=== PATIENT | male | born 1960 | race Caucasian/White ===

== ENCOUNTER 2022-04-27 07:19 | Outpatient (CLI) | payer OTHER, SELFPAY ==
--- NOTE | ~2022-04-27 | US_ITS ---
EXAMINATION: US carotid duplex BI DATE: 04/27/2022 08:05 INDICATION: Dizziness and giddiness. TECHNIQUE: Grayscale, color Doppler, and pulsed Doppler images of the cervical carotid arteries were obtained. The degree of vessel stenosis is placed in one of the following categories: normal, <50%, 5 0-69%, >=70% but less than near-occlusion, near-occlusion, or total occlusion. Note that percent sten osis relative to normal distal artery lumen diameter is indirectly measured from velocity measurement s as described by Rafael, et al. Radiology 2003; 229:340-346. COMPARISON: None. FINDINGS: RIGHT: The right common carotid artery (CCA) peak systolic velocity (PSV) is 79 cm/s. The right internal car otid artery (ICA) PSV is 81 cm/s. The right ICA end-diastolic velocity (EDV) is 22 cm/s. The right IC A/CCA PSV ratio is 1.0. Grayscale and color Doppler images yield an estimate of <50% diameter reducti on from plaque in the ICA. There is antegrade flow in the right vertebral artery. LEFT: The left CCA PSV is 77 cm/s. The left ICA PSV is 88 cm/s. The left ICA EDV is 27 cm/s. The left ICA/C CA PSV ratio is 1.1. Grayscale and color Doppler images yield an estimate of <50% diameter reduction from plaque in the ICA. There is antegrade flow in the left vertebral artery. IMPRESSION: 1. <50% stenosis in the right internal carotid artery. 2. <50% stenosis in the left internal carotid artery. Reviewed, dictated and finalized at location A. [facility] [employer]
== END 2022-04-27 07:20 | disposition home or self-care (01) ==
PROVIDERS: Visit Provider Physician Assistant
DX: R42 Dizziness and giddiness (principal); I65.23 Occlusion and stenosis of bilateral carotid arteries
CPT/HCPCS: 93880

== ENCOUNTER 2022-05-03 08:54 | Outpatient (CLI) | payer OTHER, SELFPAY ==
--- NOTE | ~2022-05-03 | NM_ITS ---
EXAMINATION: NM ana stress w perfusion DATE: 05/03/2022 10:59 INDICATION: Chest pain, unspecified. TECHNIQUE: Rest images were obtained following intravenous administration of 11 mCi Tc99m tetrofosmin (Myoview). The patient was infused intravenously with Lexiscan (regadenoson). Then, 34 mCi Tc99m tet rofosmin (Myoview) was administered intravenously, and stress images were obtained. Data was reconstr ucted into short axis and horizontal and vertical long axis SPECT images. Gated SPECT images were als o obtained. COMPARISON: CT abdomen and pelvis 01/28/2014 FINDINGS: There is no definite reversible or fixed perfusion abnormality to suggest ischemia or infar ction. There is no segmental wall motion abnormality. Left ventricular ejection fraction measures 6 6%. IMPRESSION: 1. No definite ischemia or infarct. 2. Normal left ventricular ejection fraction measuring 66%. Reviewed, dictated and finalized at location A. [facility]
--- NOTE | 2022-05-03 09:43 | EST_ITS ---
Patient Info Name: Pavan Hamlin Age: 61 years : 1960 Gender: Male Ht: 69 in Wt: 175 lbs BSA: 1.98 m2 HR: 85 bpm BP: 126 / 98 mmHg Exam Date: 05/03/2022 10:03 AM Exam Location: [facility] Stress Patient Status: Outpatient Admit Date: 05/03/2022 Staff Ordering Physician: Lisa Baig PA-C Attending Provider: Lisa Baig PA-C Exercise Technologist: Dorys Lezama CT Exercise Physician: Gary Hinton DO Exam Type: CA stress ana w NM Study Info Indications R07.9 - Chest pain, unspecified A regadenoson stress test was performed. Summary 1. 1. Negative lexiscan stress test for ischemic ST changes by ECG criteria. 2. 2. Stable hemodynamics throughout the test. 3. 3. Nuclear scan to follow and will be reported separately. Please correlate with it. 4. 4. Patient informed of the above results. Protocol: Lexiscan Stress ECG Details Stage: REST Duration (min): 3 min : 33 sec HR (bpm): 71 SBP (mmHg): 138 DBP (mmHg): 102 Stage: REST Duration (min): 8 min : 33 sec HR (bpm): 78 SBP (mmHg): 138 DBP (mmHg): 102 Stage: STAGE 1 Duration (min): 1 min : 0 sec HR (bpm): 87 SBP (mmHg): 126 DBP (mmHg): 98 Stage: RECOVERY Duration (min): 1 min : 0 sec HR (bpm): 95 SBP (mmHg): 126 DBP (mmHg): 98 Stage: RECOVERY Duration (min): 2 min : 0 sec HR (bpm): 94 SBP (mmHg): 126 DBP (mmHg): 98 Stage: RECOVERY Duration (min): 3 min : 0 sec HR (bpm): 90 SBP (mmHg): 128 DBP (mmHg): 88 Stage: RECOVERY Duration (min): 3 min : 4 sec HR (bpm): 90 SBP (mmHg): 128 DBP (mmHg): 88 Rest HR: 78 bpm Peak HR: 102 bpm Rest Sys BP: 138 mmHg Peak Sys BP: 128 mmHg Max Pred HR: 157 bpm % Max Pred HR: 65 % Target HR: 133 bpm Max RPP: 13,056 bpm*mmHg Termination Reason: Completed protocol Cardiac Symptoms: Shortness of breath, Stomach discomfort Total Time: 1 min : 0 sec Rest Ching BP: 102 mmHg Peak Ching BP: 88 mmHg Total Dose: 0.4 mg Resting ECG Sinus rhythm, ventricular trigeminy. Stress ECG No ST changes. Arrhythmias None. Report Signatures
== END 2022-05-03 08:55 | disposition home or self-care (01) ==
PROVIDERS: Visit Provider Physician Assistant
DX: R07.9 Chest pain, unspecified (principal)
CPT/HCPCS: 78452; 93017; A9502; J2785

== ENCOUNTER 2023-07-09 08:11 | Outpatient (CLI) | payer OTHER, SELFPAY ==
[2023-07-17 19:04] VITALS: BMI 25.4
--- NOTE | 2023-07-17 19:04 | WPDSLEEPSTUD ---
Sleep Study Date of Study: 07/09/23 Ordering Provider: SHAHRZAD Jiang Interpreting Physician: Tracy Abel DO Sleep Study Type: Split Polysomnogram Height: 1.75 m Weight: 78.018 kg Body Mass Index: 25.4 Neck Circumference (inches): 16 [place]: 16 Reason for Sleep Study Daytime hypersomnia Sleep History The patient is a 62-year-old with hypertension, hyperlipidemia, diabetes, urinary issues, GERD, COPD, mitral valve prolapse and previously diagnosed sleep apnea on CPAP that had a sleep study ordered by the pulmonary group after difficulty tolerating a MAD device. the patient denies awakening from sleep short of breath. He denies awakening at night with heartburn, belching or cough. He denies snoring. He rarely has trouble sleeping when he has a cold. He denies waking up gasping for air throughout the night. He denies having breathing problems at night observed by himself or others. He rarely sweats excessively at night. He denies having heart palpitations or irregular heartbeats during the night. He frequently falls asleep during the day but never while driving. He denies cataplexy and hypnagogic/ hypnopompic hallucinations. He denies having trouble at school or work due to sleepiness. He rarely feels unable to move while waking up or falling asleep. He denies feeling afraid of going to sleep. He denies having nightmares. He rarely remembers his dreams. He denies having thoughts racing through his mind. He denies feeling sad, depressed and anxious. He rarely has muscular tension. He denies noticing parts of his body jerk. He rarely kicks during the night. He rarely has crawling and aching feelings in his legs and rarely has leg pain during the night. He denies grinding his teeth during sleep and denies awakening with morning jaw pain. He is frequently bothered by pain during the day and frequently awakened by pain during the night. He occasionally wakes up feeling stiff in the morning. He rarely wakes up with sore or achy muscles. He rarely wakes up with pain in the neck, spine and other joints. He goes to bed at 9:30 p.m. on both weekdays and weekends. It takes him 10 minutes to fall asleep. He wakes up 1-2 times throughout the night to urinate and many times he is unable to fall back asleep. He wakes up between 3-4 a.m. on both weekdays and weekends. He typically gets 4-5 hours of sleep per night. He does not stay in bed after waking up in the morning. He currently lives with his . He denies consuming any caffeinated beverages within 2 hours of bedtime. He denies engaging in physical exercise before bedtime. He denies reading before falling asleep. He will watch television before falling asleep. He will take naps in the afternoon or the evening and they are refreshing. He consumes 4 cups of caffeinated beverage per day. He smokes 1 pack of cigarettes per day. He denies alcohol and recreational drug use. [facility] Past Medical History Medical History Body mass index (bmi) 27.0-27.9, adult (01/08/18) Chest pain Diabetes Emphysema lung Encounter for surgical aftercare following surgery on the skin and subcutaneous tissue Epidermal inclusion cyst H/O drainage of abscess Hepatitis B High cholesterol Mass of right thigh Mitral valve prolapse Obstructive sleep apnea syndrome Surgical History Surgical History S/P bilateral inguinal hernia repair S/P shoulder surgery Family History Family History Father Diabetes mellitus Family history of malignant melanoma, Onset Age: 40 Family history of malignant neoplasm Mother Family history of hypercholesterolemia Diabetes mellitus Family history of malignant neoplasm of breast Family history of malignant neoplasm Family history of diabetes mellitus in first degree relative
== END 2023-07-10 04:36 | disposition home or self-care (01) ==
LOC: ANHCSM 08:12
PROVIDERS: Visit Provider Physician Assistant
DX: G47.33 Obstructive sleep apnea (adult) (pediatric) (principal); G47.61 Periodic limb movement disorder
CPT/HCPCS: 95811

== ENCOUNTER 2024-06-04 12:52 | Outpatient (CLI) | payer MEDICARE, OTHER, SELFPAY ==
--- NOTE | ~2024-06-04 | CT_ITS ---
CT Scan of the Chest without Contrast: Clinical Indication: Lung cancer screening, nicotine dependence Technique: Contiguous sections were acquired throughout the chest without intravenous contrast. Dose reduction technique was used on this scan by utilizing automated exposure control and iterative recon struction technique. The dose-length product (DLP) was 106.47 mGy-cm. Findings: There is no evidence of any significant mediastinal, hilar or axillary lymphadenopathy. Calcified med iastinal lymph nodes are present. Coronary artery calcifications are present. There is no evidence of pleural or pericardial effusion. The lungs are clear. No pulmonary nodules or infiltrates are noted. There is mild emphysema. Images through the upper abdomen reveal no abnormalities. Impression: Lung RADS 1: Negative. 12 month follow-up screening CT advised. Reviewed, dictated and finalized at location . Impression: Lung RADS 1: Negative. 12 month follow-up screening CT advised.
== END 2024-06-04 12:53 | disposition home or self-care (01) ==
LOC: MICIMG 12:54
PROVIDERS: PCP Physician Assistant; Visit Provider Physician Assistant
DX: Z12.2 Encounter for screening for malignant neoplasm of respiratory organs (principal); Z87.891 Personal history of nicotine dependence
CPT/HCPCS: 71271